=== PATIENT | male | born 1980 | race Hispanic/Latino ===

== ENCOUNTER 2016-09-18 13:56 | Emergency (ER) | payer SELFPAY ==
[2016-09-18] MEDS ORDERED: ZESTRIL PO ONE (17:17)
[2016-09-18] MEDS ORDERED: MARCAINE 0.5% INFILTRATI ONE (17:17)
--- NOTE | 2016-09-18 17:22 | Emergency Department Report ---
ED Extremity Problem HPI - General Chief complaint: Skin/Abscess/Foreign Body Stated complaint: SPIDER BITE Time Seen by Provider: 09/18/16 17:01 Source: patient Mode of arrival: Ambulatory Limitations: No Limitations - History of Present Illness Initial comments: PT states he thinks he has infected spider bite on his R middle finger tip. PT denies known injury or trauma but states yesterday he had a bump on his R middle finger and then today he had noticed swelling and redness. PT states this has happened to another finger previously and he was able to "pop" the bump and it resolved. PT states his TD vaccine is UTD. PT states that he has a hx of htn. PT states he was seen at PCP office 2 weeks ago and started on a new medication. PT states he forgot to take his dose last night and he has not taken it today. PT states he has a follow up appointment on SUN for his blood pressure. Complaint: extremity pain -: Gradual, days(s) (started yesterday ) Location: right, upper extremity -: No fever Radiation: distal Severity scale (0 -10): 8 Quality: aching, constant Consistency: constant Improves with: nothing Worsens with: palpation Associated Symptoms: denies other symptoms. denies: chest pain, shortness of breath, fever - Related Data Previous Rx's Medication Instructions Recorded Last Taken Type Acetaminophen/Codeine [Tylenol #3] 1 tab PO Q6H PRN #12 tab 09/18/16 Unknown Rx Clindamycin [Clindamycin CAP] 300 mg PO Q8H #30 cap 09/18/16 Unknown Rx Allergies Allergy/AdvReac Type Severity Reaction Status Date / Time No Known Allergies Allergy Unverified 09/18/16 14:03 ED Review of Systems ROS: Stated complaint: SPIDER BITE Other details as noted in HPI Comment: All other systems reviewed and negative Constitutional: denies: chills, fever Respiratory: denies: shortness of breath, SOB with exertion, SOB at rest Cardiovascular: denies: chest pain, syncope Gastrointestinal: denies: abdominal pain, nausea, vomiting Musculoskeletal: as per HPI Skin: change in color ED Past Medical Hx - Past Medical History Previous Medical History?: Yes Hx Hypertension: Yes - Surgical History Past Surgical History?: Yes Additional Surgical History: ORIF of R ankle - Social History Smoking Status: Current Every Day Smoker Substance Use Type: None - Medications Home Medications: Home Medications Medication Instructions Recorded Confirmed Last Taken Type Acetaminophen/Codeine [Tylenol #3] 1 tab PO Q6H PRN #12 tab 09/18/16 Unknown Rx Clindamycin [Clindamycin CAP] 300 mg PO Q8H #30 cap 09/18/16 Unknown Rx ED Physical Exam - General Limitations: No Limitations General appearance: alert, in no apparent distress - Head Head exam: Present: atraumatic, normocephalic, normal inspection - Eye Eye exam: Present: normal appearance. Absent: conjunctival injection - ENT ENT exam: Present: normal exam, normal external ear exam - Neck Neck exam: Present: normal inspection, full ROM - Respiratory Respiratory exam: Present: normal lung sounds bilaterally. Absent: respiratory distress, chest wall tenderness - Cardiovascular Cardiovascular Exam: Present: regular rate, normal rhythm, normal heart sounds - Extremities Exam Extremities exam: Present: tenderness, normal capillary refill - Expanded Upper Extremity Exam Right Elbow exam: Present: normal inspection, full ROM Forearm Wrist exam: Present: normal inspection, full ROM Hand Wrist exam: Present: full ROM, tenderness (to R middle finger tip - no palpable fluid collection felt ), swelling, erythema (to the distal R long finger ). Absent: amputation, subungual hematoma Vascular: Present: radial pulse. Absent: vascular compromise - Back Exam Back exam: Present: normal inspection, full ROM - Neurological Exam Neurological exam: Present: alert, oriented X3, normal gait - Psychiatric Psychiatric exam: Present: normal affect, normal mood - Skin Skin exam: Present: warm, dry, intact, erythema ED Course Vital Signs 09/18/16 09/18/16 09/18/16 14:03 15:10 17:08 Temperature 99.3 F 98.1 F 98.9 F Pulse Rate 87 88 83 Respiratory 17 16 20 Rate Blood Pressure 177/84 Blood Pressure 199/141 180/120 [Right] O2 Sat by Pulse 100 100 100 Oximetry 09/18/16 17:43 Temperature Pulse Rate 83 Respiratory Rate Blood Pressure 186/88 Blood Pressure [Right] O2 Sat by Pulse Oximetry - Reevaluation(s) Reevaluation #1: 09/18/16 17:22 PT gave verbal consent for digital block. Pt does not want further work up. PT states he has hx of htn x 12 years and it is managed by his PCP. PT only wanting antibiotic for finger. Reevaluation #2: 09/18/16 17:58 PT denies pain sp digital block. - Nerve Block Consent Obtained: verbal consent Local Anesthetic Used: Marcaine 0.5% Amount of anesthesia used: 4 Side: right (middle finger ) Nerve Blocks: digital Procedure Successful: Yes Complications: none Patient Tolerated Procedure: no complications - Pulse Oximetry Interpretation Digit-Finger Initial Pulse Oximetry Readin Actions Taken: none ED Medical Decision Making - Differential Diagnosis [email or web address] Critical Care Time: No Critical care attestation.: If time is entered above; I have spent that time in minutes in the direct care of this critically ill patient, excluding procedure time. ED Disposition Clinical Impression: Elevated blood pressure reading Cellulitis, finger Qualifiers: Laterality: right Qualified Code(s): L03.011 - Cellulitis of right finger Disposition: TO HOME OR SELFCARE Is pt being admited?: No Does the pt Need Aspirin: No Condition: Stable Instructions: Cellulitis (ED), Hypertension (ED) Additional Instructions: Refrain from smoking ( bad for your heart and the infection in your finger) Keep your appointment with your PCP in 2 days REturn to the ED if you develop fevers, chills, nausea, vomiting, chest pain or headaches or the swelling and redness increase Take your bp medication as prescribed No driving or alcohol after taking Tylenol #3 for pain Prescriptions: Acetaminophen/Codeine [Tylenol #3] 1 tab PO Q6H PRN #12 tab PRN Reason: Pain , Severe (7-10) Clindamycin [Clindamycin CAP] 300 mg PO Q8H #30 cap Referrals: PRIMARY CARE, [Primary Care Provider] - 3-5 Days Time of Disposition: 17:55
[2016-09-18] MEDS ORDERED: CLEOCIN PO ONE (17:27)
[2016-09-18 17:44] VITALS: BP 186/88
== END 2016-09-18 18:39 | disposition home or self-care (01) ==
LOC: ED 13:56
DX: L03.011 Cellulitis of right finger (principal); I10 Essential (primary) hypertension; F17.200 Nicotine dependence, unspecified, uncomplicated; W57.XXXA Bitten or stung by nonvenomous insect and other nonvenomous arthropods, initial encounter; Y93.9 Activity, unspecified; Y92.9 Unspecified place or not applicable; Y99.9 Unspecified external cause status
CPT/HCPCS: 99282

== ENCOUNTER 2018-06-24 01:32 | Emergency (ER) | payer OTHER ==
--- NOTE | 2018-06-24 01:44 | Emergency Department Report ---
ED General Adult HPI - General Stated complaint: FB THROAT Time Seen by Provider: 06/24/18 01:39 - History of Present Illness Initial comments: Mr. Floyd is a healthy 37 yo male who swallowed a flimsy thin watter bottle cap which was at the bottom of a cup of Koolaid he was drinking. He feels the cap in the bottom of his throat near sternal notch level. No shortness of breath. Able to drink water. Incident occurred just prior to arrival by EMS. Hx of marijuana use. -: Sudden, hour(s) (1) Location: neck (sore throat) Quality: dull Worsens with: other (time) Treatments Prior to Arrival: other (water intake) - Related Data Previous Rx's Medication Instructions Recorded Last Taken Type Acetaminophen/Codeine [Tylenol #3] 1 tab PO Q6H PRN #12 tab 09/18/16 Unknown Rx Clindamycin [Clindamycin CAP] 300 mg PO Q8H #30 cap 09/18/16 Unknown Rx Allergies Allergy/AdvReac Type Severity Reaction Status Date / Time No Known Allergies Allergy Unverified 09/18/16 14:03 ED Review of Systems ROS: Stated complaint: FB THROAT Other details as noted in HPI Constitutional: denies: fever, malaise Respiratory: denies: cough, shortness of breath, wheezing Gastrointestinal: denies: abdominal pain, nausea, vomiting ED Past Medical Hx - Past Medical History Previous Medical History?: Yes Hx Hypertension: Yes Hx CVA: Yes Hx Diabetes: Yes - Surgical History Additional Surgical History: ORIF of R ankle - Social History Smoking Status: Current Every Day Smoker Substance Use Type: None, Marijuana - Medications Home Medications: Home Medications Medication Instructions Recorded Confirmed Last Taken Type Acetaminophen/Codeine [Tylenol #3] 1 tab PO Q6H PRN #12 tab 09/18/16 Unknown Rx Clindamycin [Clindamycin CAP] 300 mg PO Q8H #30 cap 09/18/16 Unknown Rx ED Physical Exam - General General appearance: alert, in no apparent distress, other (normal voice no work of breathing) - Head Head exam: Present: atraumatic, normocephalic - Eye Eye exam: Present: normal appearance - ENT ENT exam: Present: mucous membranes moist - Neck Neck exam: Present: normal inspection, full ROM. Absent: tenderness, meningismus - Respiratory Respiratory exam: Present: normal lung sounds bilaterally. Absent: respiratory distress, wheezes - Cardiovascular Cardiovascular Exam: Present: regular rate, normal rhythm, normal heart sounds. Absent: systolic murmur, diastolic murmur, rubs, gallop - GI/Abdominal GI/Abdominal exam: Present: soft, normal bowel sounds. Absent: distended, tenderness - Rectal Rectal exam: Present: deferred - Extremities Exam Extremities exam: Present: normal inspection - Back Exam Back exam: Present: normal inspection - Neurological Exam Neurological exam: Present: alert, oriented X3 - Psychiatric Psychiatric exam: Present: normal affect, normal mood - Skin Skin exam: Present: warm, dry, intact, normal color. Absent: rash ED Course Vital Signs 06/24/18 06/24/18 01:46 02:00 Temperature 97.9 F Pulse Rate 103 H 95 H Respiratory 15 10 L Rate Blood Pressure 194/130 207/131 Blood Pressure 194/130 [Left] O2 Sat by Pulse 97 99 Oximetry ED Medical Decision Making - Medical Decision Making Mr. Floyd presents with swallowed FB. He swallowed thin small water bottle cap. After continued drinking in the ED, he felt the object moved down his down and chest. He now is comfortable without cough or retching. CT neck or chest did not reveal FB according to radiology report. I also personally viewed the images. Considering Mr. Floyd is symptom free, I suspect patient did not swallow FB or FB is in the gastric region. Given return precautions such as vomiting, stomach pain or shortness of breath. Critical care attestation.: If time is entered above; I have spent that time in minutes in the direct care of this critically ill patient, excluding procedure time. ED Disposition Clinical Impression: Foreign body, swallowed Disposition: DC-01 TO HOME OR SELFCARE Is pt being admited?: No Does the pt Need Aspirin: No Condition: Stable Instructions: Foreign Body Ingestion (ED) Referrals: JOSELYN LAURENT MD [Primary Care Provider] - 3-5 Days
--- NOTE | 2018-06-24 03:42 | Cat Scan Report ---
PROCEDURE: CT CHEST WO CON TECHNIQUE: Computerized axial tomography of the chest was performed without contrast material. This study is performed without intravenous contrast and the sensitivity for pathology, including neoplasm s, adenopathy, abscess, pulmonary embolism and aortic dissection, is reduced. HISTORY: swallowed water bottle cap COMPARISONS: None . FINDINGS: Heart and pericardium: Normal. Thoracic aorta: Normal. Pulmonary vasculature: Normal. Lymph nodes: No enlarged thoracic lymph nodes. Lungs: Normal. Pleural space: No effusion, thickening, or pneumothorax. Musculoskeletal structures: No significant abnormality. Upper abdominal structures: No significant abnormality. IMPRESSION: Normal examination. This document is electronically signed by Vy Contreras DO., June 24 2018 03:40:55 AM ET
--- NOTE | 2018-06-24 03:44 | Cat Scan Report ---
PROCEDURE: CT NECK WO CON TECHNIQUE: Computerized tomography of the soft tissue neck was performed without contrast material. This study is performed without intravascular contrast material and its sensitivity for pathology, in cluding neoplasms, inflammation, abscess, free fluid, thrombosis, and arterial dissection, is reduced compared with a contrast enhanced study. HISTORY: swallowed water bottle cap COMPARISONS: None . FINDINGS: Skull base: Visualized portions are normal . Paranasal sinuses: Visualized portions are normal . Nasopharynx: Normal . Oral cavity: Normal . Epiglottis/vallecula: Normal . Larynx/pyriform sinuses: Normal . Thyroid gland: Normal . Lymph nodes: None enlarged . Salivary glands: Normal . Upper thorax: Normal . IMPRESSION: Normal Examination . This document is electronically signed by Vy Contreras DO., June 24 2018 03:42:50 AM ET
[2018-06-24 04:34] VITALS: BP 190/106
== END 2018-06-24 04:15 | disposition home or self-care (01) ==
LOC: ED 01:32
DX: T17.298A Other foreign object in pharynx causing other injury, initial encounter (principal); X58.XXXA Exposure to other specified factors, initial encounter; Y93.89 Activity, other specified; Y92.89 Other specified places as the place of occurrence of the external cause; Y99.8 Other external cause status; I10 Essential (primary) hypertension; E11.9 Type 2 diabetes mellitus without complications; F17.200 Nicotine dependence, unspecified, uncomplicated; F12.10 Cannabis abuse, uncomplicated; Z86.73 Personal history of transient ischemic attack (TIA), and cerebral infarction without residual deficits; Z79.899 Other long term (current) drug therapy
CPT/HCPCS: 70490; 71250

== ENCOUNTER 2020-01-23 16:30 | Emergency (ER) | payer SELFPAY ==
[2020-01-23] MEDS ORDERED: HYDROmorphone 1 MG/1 ML INJ IM ONE (17:34)
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
--- NOTE | 2020-01-23 18:39 | XRay Report ---
LEFT SHOULDER 3 VIEW(S) INDICATION / CLINICAL INFORMATION: Shoulder pain COMPARISON: None available. FINDINGS: BONES / JOINT(S): Comminuted and displaced distal clavicular shaft fracture. No significant arthritis . No glenohumeral dislocation or AC separation. SOFT TISSUES: Soft tissue swelling and edema noted over the clavicular shaft fracture. ADDITIONAL FINDINGS: None. Signer Name: Tian Martino MD Signed: 01/23/2020 6:34 PM Workstation Name: [id number]
[2020-01-23 20:27] VITALS: BP 132/96
== END 2020-01-23 20:29 | disposition home or self-care (01) ==
LOC: ED 16:30
DX: S42.022A Displaced fracture of shaft of left clavicle, initial encounter for closed fracture (principal); Z79.899 Other long term (current) drug therapy
CPT/HCPCS: 29105; 73030; 73080; 96372; 99283; J1170

== ENCOUNTER 2020-04-09 22:09 | Emergency (ER) | payer SELFPAY ==
[2020-04-09 23:54] VITALS: BP 194/127
== END 2020-04-09 22:30 | disposition left against medical advice (07) ==
LOC: ED 22:09
DX: H01.9 Unspecified inflammation of eyelid (principal); Z53.21 Procedure and treatment not carried out due to patient leaving prior to being seen by health care provider